=== PATIENT | male | born 1955 | race Caucasian/White ===

== ENCOUNTER → 2018-07-16 | Outpatient (CLI) | payer BC ==
--- NOTE | 2018-07-16 07:58 | XR ---
EXAMINATION TYPE: XR chest 2V DATE OF EXAM: 07/16/2018 COMPARISON: NONE HISTORY: Congestion for 1 week. TECHNIQUE: Frontal and lateral views of the chest are obtained. FINDINGS: Slightly elevated left hemidiaphragm is present. There is no focal air space opacity, pleur al effusion, or pneumothorax seen. The cardiac silhouette size is mildly enlarged. Multilevel spurri ng in thoracic spine is redemonstrated. IMPRESSION: Mild cardiomegaly without acute pulmonary process.
--- NOTE | 2018-07-16 10:50 | MR ---
EXAMINATION TYPE: MR cervical spine wo con DATE OF EXAM: 07/16/2018 7:23 AM COMPARISON: NONE HISTORY: Neck and arm pain Multiplanar MultiSpin echo imaging of the cervical spine was performed. C2-C3: No evidence for degenerative disc disease. No disc bulge/herniation or protrusion. No Canal stenosis. Foramina are patent bilaterally. C3-C4: There is mild disc desiccation. Mild circumferential disc bulge noted greatest posteriorly. Mi ld effacement ventral thecal sac. No evidence for a central stenosis or sina herniation. Degenerativ e change cervical apophyseal joints with mild bilateral foraminal encroachment. C4-C5: There is mild disc desiccation. Mild circumferential disc bulge noted greatest posteriorly. Mi ld effacement ventral thecal sac. No evidence for a central stenosis or sina herniation. Degenerativ e change cervical apophyseal joints. No foraminal encroachment. C5-C6: Moderate disc desiccation. Moderate circumferential disc bulge greatest posteriorly. Mild phani iation difficult to exclude. Effacement ventral thecal sac and mild ventral cord contact. Moderate ce ntral stenosis identified. Bilateral foraminal encroachment seen. C6-C7: No evidence for degenerative disc disease. No disc bulge/herniation or protrusion. No Canal stenosis. Foramina are patent bilaterally. C7-T1: No evidence for degenerative disc disease. No disc bulge/herniation or protrusion. No Canal stenosis. Foramina are patent bilaterally. Cervical segments are intact. There is normal alignment. Cervical spinal cord is of normal signal. Craniovertebral junction relationships are within normal limits. IMPRESSION: 1. Multilevel degenerative disc disease. 2. Multilevel disc bulging with herniation difficult to exclude at C5-6. Moderate central stenosis at C5-6. See above.
== END | disposition home or self-care (01) ==
LOC: RADMRIMAIN 06:51
PROVIDERS: ATTEND Physical Medicine & Rehabilitation
DX: M48.02 Spinal stenosis, cervical region (principal); M50.222 Other cervical disc displacement at C5-C6 level; M50.30 Other cervical disc degeneration, unspecified cervical region; S16.1XXA Strain of muscle, fascia and tendon at neck level, initial encounter; M19.011 Primary osteoarthritis, right shoulder; M25.511 Pain in right shoulder; Z95.5 Presence of coronary angioplasty implant and graft; G56.00 Carpal tunnel syndrome, unspecified upper limb; I51.7 Cardiomegaly
CPT/HCPCS: 71046; 72141